=== PATIENT | female | born 1975 | race Caucasian/White ===

== ENCOUNTER → 2025-01-24 11:38 | Outpatient (BNVA) | payer MEDICAID, SELFPAY | PROVIDERS: Visit Provider Family Medicine | DX: Z13.6 Encounter for screening for cardiovascular disorders (principal); Z51.81 Encounter for therapeutic drug level monitoring; R00.0 Tachycardia, unspecified | CPT/HCPCS: 80053; 80061; 84439; 84443; 85025 ==